=== PATIENT | female | born 1995 | race Caucasian/White ===

== ENCOUNTER 2017-06-04 10:49 | Emergency (ER) | payer MEDICAID ==
[~2017-06-04] VITALS: Ht 162.6 cm; Wt 46.3 kg
[2017-06-04 10:50] VITALS: BP_SYST 101
--- NOTE | 2017-06-04 10:52 | NUR ---
Patient triaged and placed in waiting room. VSS and patient appears in no acute distress at this time. Accompanied by MOTHER, awaiting available bed, and MD notified of need for MSE.
--- NOTE | 2017-06-04 11:13 | NUR ---
BROUGHT BACK TO BED #5 AND REPORT GIVEN TO YOGI
--- NOTE | 2017-06-04 11:20 | NUR ---
Pt complains of abdominal pain with diarrhea since yesterday, pt states this has been happening every week for the past 2 months. Pt states she is inbetween PCP's, moved from [facility] and was unable to take her thyroid medications for the past 6 months.
--- NOTE | 2017-06-04 11:28 | NUR ---
ER at bedside examining patient.
[2017-06-04 11:58] LABS: BILIRUBIN,URINE NEGATIVE (NEGATIVE); BLOOD, URINE NEGATIVE (NEGATIVE); CLARITY/URINE CLEAR (CLEAR); COLOR,URINE YELLOW (YELLOW); GLUCOSE,URINE NEGATIVE (NEGATIVE); KETONES,URINE NEGATIVE (NEGATIVE); LEUKOCYTE ESTERASE ,URINE NEGATIVE (NEGATIVE); NITRITE, URINE NEGATIVE (NEGATIVE); PH,URINE 7.5 (5.0-8.0); PROTEIN URINE NEGATIVE (NEGATIVE); UROBILINOGEN,URINE 0.2 (0.2-1.0)
--- NOTE | 2017-06-04 12:00 | NUR ---
Pt is resting in bed comfortably with no noted distress or discomfort.
[2017-06-04 12:01] LABS: BASOPHILS % (AUTO) 0.6 % (0.0-2.0); EOSINOPHILS # (AUTO) 0.1 K/uL (0.0-0.4); EOSINOPHILS % (AUTO) 1.7 % (0.0-4.0); HEMATOCRIT 36.7 % (36-48); HEMOGLOBIN 12.6 g/dL (12.0-16.0); LYMPHOCYTES # (AUTO) 1.4 K/uL (1.0-5.5); LYMPHOCYTES % (AUTO) 22.6 % (20.5-51.5); MEAN CORPUSCULAR HEMOGLOBIN 34 pg (27-31); MEAN CORPUSCULAR HGB CONC 34 % (32-36); MEAN CORPUSCULAR VOLUME 98 fL (79.0-98.0); MONOCYTES # (AUTO) 0.4 K/uL (0.0-1.0); MONOCYTES % (AUTO) 5.9 % (1.7-9.3); NEUTROPHILS # (AUTO) 4.5 K/uL (1.8-7.7); NEUTROPHILS % (AUTO) 69.2 % (40.0-70.0); PLATELET COUNT (AUTO) 195 K/uL (130-430); RED BLOOD CELL COUNT(AUTO) 3.75 MIL/uL (4.2-6.2); RED CELL DISTRIBUTION WIDTH 12.4 % (9.0-15.0); WHITE BLOOD COUNT (AUTO) 6.4 K/uL (4.8-10.8)
[2017-06-04 12:03] LABS: CALCIUM 9.6 mg/dL (8.4-11.0); CREATININE 0.89 mg/dL (0.55-1.30); POTASSIUM 3.5 mmol/L (3.5-5.1)
[2017-06-04 12:13] LABS: FREE T4 (FREE THYROXINE) 0.4 ng/dl (0.8-1.5)
[2017-06-04 12:18] LABS: ALBUMIN 4.4 g/dL (3.4-4.8); TOTAL BILIRUBIN 0.7 mg/dL (0.0-1.0)
--- NOTE | 2017-06-04 12:45 | NUR ---
Pt resting comfortably. Will continue to monitor.
--- NOTE | 2017-06-04 13:08 | NUR ---
Dr. Cordero at bedside explaining results.
[2017-06-04 13:35] VITALS: BP_SYST 100
--- NOTE | 2017-06-04 13:35 | NUR ---
Patient given written and verbal discharge instructions and verbalizes understanding. ER MD discussed with patient the results and treatment provided. Patient in stable condition. ID arm band removed. IV catheter removed intact and dressing applied, no active bleeding. Rx of Levothroid given. Patient educated on pain management and to follow up with PMD. Pain Scale 0. Opportunity for questions provided and answered.
== END 2017-06-04 13:35 | disposition home or self-care (01) ==
LOC: SED 10:49
DX: K52.9 Noninfective gastroenteritis and colitis, unspecified (principal); E03.9 Hypothyroidism, unspecified
CPT/HCPCS: 36415; 80053; 81003; 83690-TC; 84439; 84443-TC; 85025; 99284

== ENCOUNTER 2017-06-08 08:12 | Emergency (ER) | payer MEDICAID ==
[~2017-06-08] VITALS: Ht 162.6 cm; Wt 45.4 kg
--- NOTE | 2017-06-08 08:20 | NUR ---
Pt was brought to bed 7 and report endorsed to Nena GAO
--- NOTE | 2017-06-08 08:28 | NUR ---
Pt complains of nausea, vomiting and diarrhea since last night, states was given Levothyroxine 125 mcg here in the ER four days ago. Pt states was taking 100 mcg six months ago and "thinks why her stomach might be upset." Pt states feeling shaky and has minor pinching pain in abdomen. Pt ambulated into ER, no other injuries/complaints per pt or noted.
[2017-06-08 08:30] VITALS: BP_SYST 106
--- NOTE | 2017-06-08 08:30 | NUR ---
ER at bedside examining patient.
--- NOTE | 2017-06-08 08:31 | NUR ---
Bev eid in EDM - 06/08/17 at 0834 by [email or web address] TIFFANI Payton at bedside examining patient.
--- NOTE | 2017-06-08 08:55 | NUR ---
Xray is at bedside.
[2017-06-08 08:58] LABS: BILIRUBIN,URINE NEGATIVE (NEGATIVE); BLOOD, URINE NEGATIVE (NEGATIVE); CLARITY/URINE CLEAR (CLEAR); COLOR,URINE YELLOW (YELLOW); GLUCOSE,URINE NEGATIVE (NEGATIVE); KETONES,URINE NEGATIVE (NEGATIVE); LEUKOCYTE ESTERASE ,URINE NEGATIVE (NEGATIVE); NITRITE, URINE NEGATIVE (NEGATIVE); PROTEIN URINE NEGATIVE (NEGATIVE); UROBILINOGEN,URINE 0.2 (0.2-1.0)
[2017-06-08 09:11] LABS: CALCIUM 8.4 mg/dL (8.4-11.0); CREATININE 1.01 mg/dL (0.55-1.30); POTASSIUM 3.5 mmol/L (3.5-5.1)
[2017-06-08 09:14] LABS: BASOPHILS % (AUTO) 0.1 % (0.0-2.0); EOSINOPHILS % (AUTO) 0.1 % (0.0-4.0); HEMATOCRIT 37.6 % (36-48); LYMPHOCYTES # (AUTO) 0.1 K/uL (1.0-5.5); LYMPHOCYTES % (AUTO) 2.1 % (20.5-51.5); MEAN CORPUSCULAR HEMOGLOBIN 34 pg (27-31); MEAN CORPUSCULAR HGB CONC 35 % (32-36); MEAN CORPUSCULAR VOLUME 98 fL (79.0-98.0); MONOCYTES # (AUTO) 0.1 K/uL (0.0-1.0); MONOCYTES % (AUTO) 1.6 % (1.7-9.3); NEUTROPHILS # (AUTO) 6.9 K/uL (1.8-7.7); NEUTROPHILS % (AUTO) 96.1 % (40.0-70.0); PLATELET COUNT (AUTO) 166 K/uL (130-430); RED BLOOD CELL COUNT(AUTO) 3.84 MIL/uL (4.2-6.2); RED CELL DISTRIBUTION WIDTH 12.3 % (9.0-15.0); WHITE BLOOD COUNT (AUTO) 7.1 K/uL (4.8-10.8)
[2017-06-08 09:26] LABS: ALBUMIN 4.3 g/dL (3.4-4.8); FREE T4 (FREE THYROXINE) 0.7 ng/dl (0.8-1.5); THYROID STIMULATING HORMONE 44.26 uIu/mL (0.36-3.74); TOTAL BILIRUBIN 1.2 mg/dL (0.0-1.0)
[2017-06-08 09:37] LABS: PROTHROMBIN TIME 10.9 SECS (9.5-12.5)
--- NOTE | 2017-06-08 09:41 | NUR ---
Pain medication was given, pt in stable condition. Pt resting comfortably. Will continue to monitor. Addendum: 06/08/17 at 0953 by [email or web address] No adverse reactions noted
[2017-06-08] MEDS ORDERED: IBUPROFEN 600 MG TABLET PO ONE (09:45)
--- NOTE | 2017-06-08 10:08 | NUR ---
MD at bedside explaining results.
[2017-06-08 10:37] VITALS: BP_SYST 100
--- NOTE | 2017-06-08 10:37 | NUR ---
Patient given written and verbal discharge instructions and verbalizes understanding. ER MD discussed with patient the results and treatment provided. Patient in stable condition. ID arm band removed. Rx of Zofran given. Patient educated on pain management and to follow up with PMD. Pain Scale 0. Opportunity for questions provided and answered.
== END 2017-06-08 10:37 | disposition home or self-care (01) ==
LOC: SED 08:12
DX: E03.9 Hypothyroidism, unspecified (principal); R11.2 Nausea with vomiting, unspecified
CPT/HCPCS: 36415; 71010; 80053; 81003; 81025; 82550-TC; 83880; 84439; 84443-TC; 84484; 84703; 85025; 85610-TC; 85730-TC; 93005; 99285